=== PATIENT | male | born 1985 | race Hispanic/Latino ===

== ENCOUNTER 2018-05-30 13:20 | Emergency (ER) | payer SELFPAY ==
[~2018-05-30] VITALS: Ht 182.9 cm; Wt 113.4 kg
[~2018-05-30 13:20] MED LIST: HYDROCHLOROTH12.5 MG PO; LISINOPRIL5 MG PO
[2018-05-30] MEDS ORDERED: GLIPIZIDE5 MG PO (13:41)
[2018-05-30] MEDS ORDERED: METFORMIN HCL500 MG PO (13:41)
[2018-05-30] MEDS ORDERED: LISINOPRIL-HCT1 EACH PO (13:41)
[2018-05-30 14:57] VITALS: BP 160/90
== END 2018-05-30 15:04 | disposition home or self-care (01) ==
LOC: ER 13:20
DX: G51.0 Bell's palsy (principal)
CPT/HCPCS: 99282